=== PATIENT | female | born 2000 | race Caucasian/White ===

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

== ENCOUNTER 2019-01-27 17:35 | Emergency (ER) | payer SELFPAY ==
--- NOTE | 2019-01-27 17:39 | UC ---
Throat Pain/Nasal Davin HPI - HPI Summary HPI Summary: Sore throat since last evening. - History of Current Complaint Stated Complaint: ST Time Seen by Provider: 01/27/19 17:38 Hx Obtained From: Patient Hx Last Menstrual Period: 07/30/18 ?: No Onset/Duration: Gradual Onset Severity: Mild Cough: None Associated Signs & Symptoms: Positive: Negative - Allergies/Home Medications Allergies/Adverse Reactions: Allergies Allergy/AdvReac Type Severity Reaction Status Date / Time prochlorperazine Allergy Dizziness Verified 01/27/19 17:50 [From Compazine] and pt felt faint PMH/Surg Hx/FS Hx/Imm Hx Previously Healthy: Yes Respiratory History: Asthma Other History Of: Negative For: HIV, Hepatitis B, Hepatitis C, Anticoagulant Therapy - Surgical History Surgical History: Yes Surgery Procedure, Year, and Place: b/l ear tubes,mouth - Family History Known Family History: Positive: Renal Disease - "Links disease" Father and Uncle with kidney transplants, Respiratory Disease Negative: Cardiac Disease, Hypertension - Social History Alcohol Use: Rare Substance Use Type: None Smoking Status (MU): Former Smoker Type: Cigarettes Amount Used/How Often: 07/12 PPD Length of Time of Smoking/Using Tobacco: Since Age 15 When Did the Patient Quit Smoking/Using Tobacco: 05/2018 Household Exposure Type: Cigarettes - Immunization History Most Recent Influenza Vaccination: Not the Season Vaccination Up to Date: Yes Review of Systems All Other Systems Reviewed And Are Negative: Yes ENT: Positive: Sore Throat Is Patient Immunocompromised?: No Physical Exam Triage Information Reviewed: Yes Appearance: Well-Appearing, No Pain Distress, Well-Nourished Vital Signs Reviewed: Yes Eyes: Positive: Conjunctiva Clear ENT: Positive: Hearing grossly normal, Pharyngeal erythema - Minimal pharyngeal erythema, TMs normal, Uvula midline. Negative: Tonsillar swelling, Tonsillar exudate, Trismus, Muffled voice, Hoarse voice Neck: Positive: Supple, Nontender, No Lymphadenopathy Respiratory: Positive: Lungs clear, Normal breath sounds, No respiratory distress, No accessory muscle use Cardiovascular: Positive: RRR, No Murmur, Pulses Normal, Brisk Capillary Refill Abdomen Description: Positive: Nontender, No Organomegaly, Soft. Negative: CVA Tenderness (R), CVA Tenderness (L) Bowel Sounds: Positive: Present Musculoskeletal Exam: Normal Neurological Exam: Normal Psychological Exam: Normal Skin Exam: Normal Throat Pain/Nasal Course/Dx - Course Course Of Treatment: Rapid strep positive - Differential Dx/Diagnosis Provider Diagnosis: Strep pharyngitis Discharge - Sign-Out/Discharge Documenting (check all that apply): Patient Departure All imaging exams completed and their final reports reviewed: No Studies - Discharge Plan Condition: Fair Disposition: HOME Prescriptions: Amoxicillin PO (*) [Amoxicillin 875 MG (*)] 875 mg PO BID 10 Days #19 tab Patient Education Materials: Strep Throat (DC) Forms: *Work Release Referrals: Deepa Garnica NP [Nurse Practitioner] - Additional Instructions: Change your toothbrush in 24 hours, warm salt water gargles, throat lozenges, Tylenol/motrin as directed for a fever or pain. Follow up with your primary care provider in 3-4 days if no improvement. - Billing Disposition and Condition Condition: FAIR Disposition: Home - Attestation Statements Provider Attestation: I was available for consult. This patient was seen by the MICHELLE. The patient was not presented to , seen by or examined by ga -Elpidio Ye MD
[2019-01-27 17:57] VITALS: BP 111/64
[2019-01-27] MEDS ORDERED: Amoxicillin PO (*) 500 MG CAP PO ONE (18:09)
== END 2019-01-27 18:24 | disposition home or self-care (01) ==
LOC: UCCORT 17:35
DX: J02.0 Streptococcal pharyngitis (principal); Z87.891 Personal history of nicotine dependence
CPT/HCPCS: 87651; 99212; A9270-GY; G0463

== ENCOUNTER 2019-03-01 13:42 | Emergency (ER) | payer BC ==
[2019-03-01 14:19] VITALS: BP 110/74
--- NOTE | 2019-03-01 14:31 | UC ---
Throat Pain/Nasal Davin HPI - HPI Summary HPI Summary: 18-year-old female presents with complaints of 3 day history of fatigue, general malaise, nasal congestion, sinus pressure, and bilateral ear fullness. Also reports that she has had some intermittent vertigo with position changes. Reports fever of 100 2.3 F last night. Denies sore throat, dysphagia, cough, chest pain, shortness of breath, abdominal pain, nausea, or vomiting. - History of Current Complaint Chief Complaint: UCRespiratory Stated Complaint: SINUS,EAR PAIN Time Seen by Provider: 03/01/19 14:05 Hx Obtained From: Patient Hx Last Menstrual Period: DOES NOT HAVE REG PERIODS USES CONT BCP Pain Intensity: 9 - Allergies/Home Medications Allergies/Adverse Reactions: Allergies Allergy/AdvReac Type Severity Reaction Status Date / Time prochlorperazine Allergy Dizziness Verified 03/01/19 14:05 [From Compazine] and pt felt faint Home Medications: Home Medications Acetaminophen TAB* [Tylenol TAB*] 650 mg PO Q4H PRN 03/01/19 [History Confirmed 03/01/19] PMH/Surg Hx/FS Hx/Imm Hx Previously Healthy: Yes - Denies significant PMH Other History Of: Negative For: HIV, Hepatitis B, Hepatitis C, Anticoagulant Therapy - Surgical History Surgical History: Yes Surgery Procedure, Year, and Place: b/l ear tubes,mouth - Family History Known Family History: Positive: Renal Disease - "Links disease" Father and Uncle with kidney transplants, Respiratory Disease Negative: Cardiac Disease, Hypertension - Social History Occupation: Employed Full-time Lives: Alone Alcohol Use: Rare Substance Use Type: None Smoking Status (MU): Former Smoker Type: eCigarettkoko Amount Used/How Often: /10 PPD Length of Time of Smoking/Using Tobacco: Since Age 15 When Did the Patient Quit Smoking/Using Tobacco: 05/2018 Household Exposure Type: Cigarettes - Immunization History Most Recent Influenza Vaccination: Not the 2017/2017 Season Vaccination Up to Date: Yes Review of Systems All Other Systems Reviewed And Are Negative: Yes Constitutional: Positive: Fever, Fatigue Skin: Negative: Rash Eyes: Negative: Drainage, Eye Redness ENT: Positive: Ear Ache, Nasal Discharge, Sinus Congestion, Sinus Pain/ Tenderness. Negative: Sore Throat Respiratory: Negative: Shortness Of Breath, Cough Cardiovascular: Negative: Chest Pain Gastrointestinal: Negative: Abdominal Pain, Vomiting, Diarrhea, Nausea Genitourinary: Positive: Negative Musculoskeletal: Positive: Negative Neurological: Positive: Negative Is Patient Immunocompromised?: No Physical Exam - Summary Physical Exam Summary: GENERAL APPEARANCE: Well developed, well nourished, alert and cooperative, and appears to be in no acute distress. EYES: Conjunctiva clear. No drainage. EARS: External auditory canals and tympanic membranes clear, hearing grossly intact. NOSE: Moderate nasal congestion with mucosal erythema and edema. No nasal discharge. Tenderness over the frontal and maxillary sinuses with percussion. THROAT: Pharynx normal. No tonsilar inflammation, swelling, exudate, or lesions. Uvula midline. NECK: Neck supple, non-tender without lymphadenopathy. CARDIAC: Normal S1 and S2. No S3, S4 or murmurs. Rhythm is regular. There is no peripheral edema, cyanosis or pallor. Extremities are warm and well perfused. Capillary refill is less than 2 seconds. Peripheral pulses intact. LUNGS: Clear to auscultation without rales, rhonchi, wheezing or diminished breath sounds. ABDOMEN: Positive bowel sounds. Soft, nondistended, nontender. No guarding or rebound. No masses or hepatosplenomegally. MUSKULOSKELETAL: ROM intact to all extremities. No joint erythema or tenderness. Normal muscular development. Normal gait. SKIN: Skin normal color, texture and turgor with no lesions or eruptions. Triage Information Reviewed: Yes Vital Signs: Initial Vital Signs Temp 97.6 F 03/01/19 14:07 Pulse 83 03/01/19 14:07 Resp 17 03/01/19 14:07 BP 110/74 03/01/19 14:07 Pulse Ox 100 03/01/19 14:07 Vital Signs Reviewed: Yes Throat Pain/Nasal Course/Dx - Course Course Of Treatment: 18-year-old female presents with complaints of 3 day history of fatigue, general malaise, nasal congestion, sinus pressure, and bilateral ear fullness. Also reports that she has had some intermittent vertigo with position changes. Reports fever of 100 2.3 F last night. Denies sore throat, dysphagia, cough, chest pain, shortness of breath, abdominal pain, nausea, or vomiting. Afebrile. Vital signs stable. Patient had moderate nasal congestion with mucosal erythema and edema. No nasal discharge. Tenderness over the frontal and maxillary sinuses with percussion. The remainder of exam was unremarkable. Recommending symptomatic treatment for a viral sinusitis including fluticasone nasal spray, nasal rinses, and [id number] decongestant. Patient is to return here or with her primary care provider in 5 days if symptoms are not improving. Anticipatory guidance and warning signs reviewed with the patient. Verbalized understanding and agrees with plan of care. - Differential Dx/Diagnosis Differential Diagnosis/HQI/PQRI: Mononucleosis, Otitis Media, Pharyngitis, Sinusitis, Tonsillitis, URI Provider Diagnosis: Acute sinusitis Discharge ED - Sign-Out/Discharge Documenting (check all that apply): Patient Departure All imaging exams completed and their final reports reviewed: No Studies - Discharge Plan Condition: Stable Disposition: HOME Prescriptions: Fluticasone NASAL SPRAY 50MCG* [Flonase NASAL SPRAY 50MCG*] 2 spray BOTH NARES DAILY #1 btl Patient Education Materials: Sinusitis (ED) Forms: *Work Release Referrals: No Primary Care Phys,NOPCP [Primary Care Provider] - Additional Instructions: Your history and exam are consistent with a sinus infection. Sinus infections without fever are most often caused by a viral infection. Viral infections do not respond to antibiotics and are limited to the treatment of symptoms. Viral infections typically run their course in 7-10 days. Drink plenty of fluids to avoid dehydration especially if you are running any fever. Use a saline rinse kit such as Neti Pot or NeilMed at least twice a day to help thin secretions and promote drainage of the sinuses. Use fluticasone (Flonase) nasal spray 2 sprays each nostril once daily. Use an over the counter decongestant such as Sudafed according to directions to help with congestion. Take over the counter acetaminophen (Tylenol) or ibuprofen (Advil, Motrin) according to directions as needed for pain or fever. Return here or follow up with your primary care provider in 5 days if symptoms persist. Seek immediate medical attention in the emergency room if you have fever greater than 100.5 F despite taking acetaminophen or ibuprofen, have chest pain , difficulty breathing, are unable to swallow, or have any worsening of symptoms. - Billing Disposition and Condition Condition: STABLE Disposition: Home - Attestation Statements Provider Attestation: I was available for consult. This patient was seen by the MICHELLE. The patient was not presented to, seen by, or examined by me. -Yuliana
== END 2019-03-01 14:50 | disposition home or self-care (01) ==
LOC: UCCORT 13:42
DX: J01.90 Acute sinusitis, unspecified (principal); Z87.891 Personal history of nicotine dependence
CPT/HCPCS: 99212; G0463

== ENCOUNTER 2019-04-12 07:21 | Emergency (ER) | payer BC, OTHER ==
[2019-04-12 07:50] VITALS: BP 105/64
--- NOTE | 2019-04-12 08:40 | UC ---
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 Was working with another aide, working together to scooch a heavy male patient up in bed. Has pain radiating to the right posterior leg, but no paresthesias and no leg weakness. Coughing and sneezing does not worsen pain. - History of Current Complaint Chief Complaint: UCBackPain Stated Complaint: WC-BACK INJURY Time Seen by Provider: 04/12/19 08:24 Hx Obtained From: Patient, Family/Assistant Branch Operations Manager - here with her mother Hx Last Menstrual Period: BCP Onset/Duration: Sudden Onset, Lasting Days - 3 Timing: Constant Severity Initially: Moderate Severity Currently: Moderate Pain Intensity: 8 Back Pain: Is Discrete @ - upper lumbar area. Character: Aching, Throbbing Aggravating Factor(s): Movement, Lifting, Bending Alleviating Factor(s): Rest, Position - best lying on her stomach. Associated Signs And Symptoms: Positive: Negative. Negative: Bladder Incontinence, Bowel Incontinence - Risk Factors AAA Risk Factors: Negative TAD Risk Factors: Negative Cauda Equina Risk Factors: Negative Epidural Abscess Risk Factors: Negative - Allergies/Home Medications Allergies/Adverse Reactions: Allergies Allergy/AdvReac Type Severity Reaction Status Date / Time prochlorperazine Allergy Dizziness Verified 04/12/19 07:50 [From Compazine] and pt felt faint Home Medications: Home Medications Ibuprofen 600 mg PO Q6HR PRN 04/12/19 [History Confirmed 04/12/19] PMH/Surg Hx/FS Hx/Imm Hx Previously Healthy: Yes - overweight. Other History Of: Negative For: HIV, Hepatitis B, Hepatitis C, Anticoagulant Therapy - Surgical History Surgical History: Yes Surgery Procedure, Year, and Place: b/l ear tubes,mouth - Family History Known Family History: Positive: Renal Disease - "Links disease" Father and Uncle with kidney transplants, Respiratory Disease, Non-Contributory Negative: Cardiac Disease, Hypertension - Social History Occupation: Employed Full-time Alcohol Use: Rare Substance Use Type: None Smoking Status (MU): Former Smoker Type: eCigarettes Amount Used/How Often: 07/12 PPD Length of Time of Smoking/Using Tobacco: Since Age 15 When Did the Patient Quit Smoking/Using Tobacco: 05/2018 Household Exposure Type: Cigarettes - Immunization History Most Recent Influenza Vaccination: Not the Season Vaccination Up to Date: Yes Review of Systems All Other Systems Reviewed And Are Negative: Yes Constitutional: Positive: Negative Skin: Positive: Negative Eyes: Positive: Negative ENT: Positive: Negative Respiratory: Positive: Negative Cardiovascular: Positive: Negative Gastrointestinal: Positive: Negative Genitourinary: Positive: Negative Motor: Positive: Decreased ROM Musculoskeletal: Positive: Decreased ROM, Myalgia Neurological: Positive: Negative Psychological: Positive: Negative Is Patient Immunocompromised?: No Physical Exam Triage Information Reviewed: Yes Appearance: Well-Appearing, Pain Distress - mild to moderate, Obese Vital Signs: Initial Vital Signs Temp 97.6 F 04/12/19 07:46 Pulse 78 04/12/19 07:46 Resp 16 04/12/19 07:46 BP 105/64 04/12/19 07:46 Pulse Ox 100 04/12/19 07:46 Eye Exam: Normal ENT: Positive: Normal ENT inspection Neck: Positive: Supple, Nontender, No Lymphadenopathy Respiratory: Positive: Lungs clear, Normal breath sounds Cardiovascular: Positive: RRR, No Murmur Abdomen Description: Positive: Nontender, No Organomegaly Musculoskeletal Exam: Other - Antalgic gait, pain with rising from chair; Tenderness L2-3-4 with paraspinal muscle spasm throughout. DTR's normal and toes downgoing. Positive SLR at 30 degrees on the right, no crossed straight leg raising. . Neurological Exam: Normal Neurological: Positive: Alert, Muscle Tone Normal Psychological Exam: Normal Skin Exam: Normal Back Pain Course/Dx - Course Course Of Treatment: Discussed use of steroids, which she had at age 11 and did not tolerate due to severe insomnia. Discussed risks and possible benefits and she will trial the medication. Referred to Dr. Ye for evaluation. NSAID's and flexeril given. - Differential Dx/Diagnosis Differential Diagnosis/HQI/PQRI: Herniated Disc, Strain, Sprain Provider Diagnosis: Low back strain Discharge ED - Sign-Out/Discharge Documenting (check all that apply): Patient Departure All imaging exams completed and their final reports reviewed: No Studies - Discharge Plan Condition: Stable Disposition: HOME Prescriptions: Cyclobenzaprine TAB* [Flexeril 10 MG TAB*] 10 mg PO BID PRN #30 tab PRN Reason: Spasms - Back methylPREDNISolone [Medrol] 4 mg PO .SEE VIVIAN INSTRUCTION #1 tab.ds.pk Naproxen [Naproxen 500 mg tab] 500 mg PO BID #30 tablet Patient Education Materials: Acute Low Back Pain (ED) Forms: *Work Release Referrals: No Primary Care Phys,NOPCP [Primary Care Provider] - Elpidio Ye MD [Medical Doctor] - Additional Instructions: Please call Dr. Ye to arrange a follow up visit to assess back injury. STOP use of ibuprofen and use naproxen 500mg twice daily for pain and inflammation. If the medrol dosepack causes insomnia or irritability, you can stop use of it. Off work through 04/16/19. - Billing Disposition and Condition Condition: STABLE Disposition: Home
== END 2019-04-12 08:57 | disposition home or self-care (01) ==
LOC: UCCORT 07:21
DX: S39.012A Strain of muscle, fascia and tendon of lower back, initial encounter (principal); Z88.8 Allergy status to other drugs, medicaments and biological substances; Z87.891 Personal history of nicotine dependence; X50.0XXA Overexertion from strenuous movement or load, initial encounter; Y93.89 Activity, other specified; Y92.9 Unspecified place or not applicable
CPT/HCPCS: 99212; G0463

== ENCOUNTER 2019-05-27 16:32 | Emergency (ER) | payer BC, OTHER ==
[2019-05-27 17:00] VITALS: BP 108/71
--- NOTE | 2019-05-27 17:39 | ED ---
Throat Pain/Nasal Congestion - HPI Summary HPI Summary: 19-year-old white female presents with bilateral ear pain that started with URI symptoms about 1.5 weeks ago. Pain is worsened. Denies fever or chills nausea , vomiting or worsening cough with sputum - History of Current Complaint Chief Complaint: UCGeneralIllness Time Seen by Provider: 05/27/19 17:31 Hx Obtained From: Patient Onset/Duration: Sudden Onset Associated Signs And Symptoms: Positive: Negative - Epiglottits Risk Factors Epiglottis Risk Factors: Negative - Allergies/Home Medications Allergies/Adverse Reactions: Allergies Allergy/AdvReac Type Severity Reaction Status Date / Time prochlorperazine Allergy Dizziness Verified 05/27/19 16:53 [From Compazine] and pt felt faint PMH/Surg Hx/FS Hx/Imm Hx Previously Healthy: Yes Endocrine/Hematology History: Denies: Hx Anticoagulant Therapy, Hx Diabetes, Hx Thyroid Disease Cardiovascular History: Denies: Hx Congestive Heart Failure, Hx Deep Vein Thrombosis, Hx Hypertension , Hx Myocardial Infarction, Hx Pacemaker/ICD Respiratory History: Reports: Hx Asthma Denies: Hx Chronic Obstructive Pulmonary Disease (COPD), Hx Lung Cancer, Hx Pneumonia, Hx Pulmonary Embolism GI History: Denies: Hx Gall Bladder Disease, Hx Gastrointestinal Bleed, Hx Ulcer, Hx Urosepsis History: Denies: Hx Kidney Stones, Hx Renal Disease Neurological History: Denies: Hx Dementia, Hx Migraine, Hx Seizures, Hx Transient Ischemic Attacks (TIA) Psychiatric History: Denies: Hx Anxiety, Hx Depression, Hx Schizophrenia, Hx Bipolar Disorder - Surgical History Surgery Procedure, Year, and Place: b/l ear tubes. mouth Infectious Disease History: No Infectious Disease History: Denies: Traveled Outside the [place] in Last 30 Days - Family History Known Family History: Positive: Renal Disease - "Links disease" Father and Uncle with kidney transplants, Respiratory Disease, Non-Contributory Negative: Cardiac Disease, Hypertension - Social History Alcohol Use: Rare Substance Use Type: Reports: None Smoking Status (MU): Former Smoker Type: eCigarettes Amount Used/How Often: 1/10 PPD Length of Time of Smoking/Using Tobacco: Since Age 15 Review of Systems Constitutional: Negative Eyes: Negative Positive: Sore Throat, Ear Ache. Negative: Nasal Discharge Cardiovascular: Negative Respiratory: Negative Negative: Shortness Of Breath, Cough Gastrointestinal: Negative Genitourinary: Negative Musculoskeletal: Negative Skin: Negative Neurological: Negative All Other Systems Reviewed And Are Negative: Yes Physical Exam - Summary Physical Exam Summary: Appearance: Positive: No Pain Distress Skin: Positive: Warm Head/Face: Positive: Normal Head/Face Inspection Eyes: :Normal ENT: mild B/L TM erythema w/o effusion, bilateral posterior auricular tenderness Neck: Positive: Supple Respiratory/Lung Sounds: Positive: Clear to Auscultation. Cardiovascular: Positive: Normal, RRR, S1, S2 Abdomen : soft, NT/ND Musculoskeletal: Positive: Normal, Strength/ROM Intact Neurological: Positive: CN 2-12 grossly intact Triage Information Reviewed: Yes Vital Signs On Initial Exam: Initial Vitals Temp Pulse Resp BP Pulse Ox 36.4 C 93 16 108/71 98 05/27/19 16:54 05/27/19 16:54 05/27/19 16:54 05/27/19 16:54 05/27/19 16:54 Vital Signs Reviewed: Yes Diagnostics - Vital Signs Vital Signs Temp Pulse Resp BP Pulse Ox 05/27/19 16:54 36.4 C 93 16 108/71 98 - Laboratory Lab Statement: Any lab studies that have been ordered have been reviewed, and results considered in the medical decision making process. EENT Course/Dx - Diagnoses Provider Diagnoses: Otitis media Discharge ED - Sign-Out/Discharge Documenting (check all that apply): Patient Departure All imaging exams completed and their final reports reviewed: No Studies - Discharge Plan Condition: Stable Disposition: HOME Prescriptions: Amoxicillin/Clavulanate TAB* [Augmentin TAB 875*] 875 mg PO BID 7 Days #14 tab Patient Education Materials: Ear Infection (ED) Forms: *Work Release Additional Instructions: If pain continues in spite of antibiotics in a few days please follow-up with ENT doctor. - Billing Disposition and Condition Condition: STABLE Disposition: Home
== END 2019-05-27 17:47 | disposition home or self-care (01) ==
LOC: UCCORT 16:32
DX: H66.93 Otitis media, unspecified, bilateral (principal); J02.9 Acute pharyngitis, unspecified; J45.909 Unspecified asthma, uncomplicated; Z87.891 Personal history of nicotine dependence; Z88.8 Allergy status to other drugs, medicaments and biological substances
CPT/HCPCS: 99212; G0463

== ENCOUNTER 2019-06-21 19:08 | Emergency (ER) | payer BC ==
[2019-06-21 21:10] VITALS: BP 104/54
--- NOTE | 2019-06-21 21:45 | UC ---
General HPI - HPI Summary HPI Summary: Patient is a 19yo female presenting with boyfriend for "dizziness when standing up from sitting, when turning, head, and when eating" x3 days. She states "the whole room spins." Episodes last ~10 seconds. Denies vision changes otherwise. Patient also notes that she has b/l earaches. Notes she was treated with augmentin for b/l ear infections on 05/27 and states that symptoms resolved only for 1-2 days and then returned. Notes chronic "ear problems" and intermittent tinnitus. Denies hearing loss. She also notes "constant "pressure in the back on her lower head" x3 days. Denies aggravating and alleviating factors. Denies contact use or glasses. Denies syncope. Denies n/v. Denies arm/ leg weakness. Denies anything like this in the past. Patient adds she is "very stressed." Also states she is unsure whether or not she could be , stating "there is always a chance." - History of Current Complaint Chief Complaint: UCHeadagiovana Stated Complaint: HEADACHE, DIZZINESS Hx Obtained From: Patient Hx Last Menstrual Period: no menses d/t bcp Onset/Duration: Sudden Onset Pain Intensity: 9 - Allergy/Home Medications Allergies/Adverse Reactions: Allergies Allergy/AdvReac Type Severity Reaction Status Date / Time prochlorperazine Allergy Dizziness Verified 06/21/19 19:29 [From Compazine] and pt felt faint PMH/Surg Hx/FS Hx/Imm Hx Other History Of: Negative For: HIV, Hepatitis B, Hepatitis C, Anticoagulant Therapy - Surgical History Surgical History: Yes Surgery Procedure, Year, and Place: b/l ear tubes. mouth - Family History Known Family History: Positive: Renal Disease - "Links disease" Father and Uncle with kidney transplants, Respiratory Disease, Non-Contributory Negative: Cardiac Disease, Hypertension - Social History Alcohol Use: Rare Substance Use Type: None Smoking Status (MU): Former Smoker Type: eCigarettes Amount Used/How Often: 07/12 PPD Length of Time of Smoking/Using Tobacco: Since Age 15 When Did the Patient Quit Smoking/Using Tobacco: 05/2018 Household Exposure Type: Cigarettes - Immunization History Most Recent Influenza Vaccination: Not the Season Vaccination Up to Date: Yes Review of Systems All Other Systems Reviewed And Are Negative: Yes Constitutional: Positive: Negative. Negative: Fever, Chills, Fatigue Eyes: Negative: Blurred Vision, Diplopia ENT: Positive: Ear Ache - b/l, Other - intermittent tinnitus. Negative: Sore Throat, Sinus Congestion Respiratory: Positive: Negative Cardiovascular: Positive: Negative Gastrointestinal: Positive: Negative. Negative: Vomiting, Nausea Motor: Positive: Negative Musculoskeletal: Positive: Negative Neurological: Positive: Headache - "lower back of head", Other - dizziness when standing up and eating, "room spinning". Negative: Weakness, Paresthesia, Numbness Physical Exam Triage Information Reviewed: Yes Appearance: Well-Appearing, No Pain Distress, Well-Nourished Vital Signs: Initial Vital Signs Temp 96.9 F 06/21/19 19:30 Pulse 80 06/21/19 19:30 Resp 16 06/21/19 19:30 BP 108/68 06/21/19 19:30 Pulse Ox 100 06/21/19 19:30 Lab Results 06/21/19 06/21/19 Range/Units 21:26 21:27 POC Urine Color Other POC Urine Clarity Clear POC Urine pH 6.5 (5-9) POC Ur Specif Valier 1.025 (1.010-1.030) POC Urine Protein Trace (Negative) POC Ur Glucose (UA) Negative (Negative) POC Urine Ketones Negative (Negative) POC Urine Blood Negative (Negative) POC Urine Nitrite Negative (Negative) POC Urine Bilirubin Negative (Negative) POC Urine Urobilinogen 0.2 (Negative) POC U Leukocyte Esteras Negative (Negative) POC Ur Test Negative (Negative) Vital Signs Reviewed: Yes Eye Exam: Other - PERRLA. EOM intact. no horizontal or vertical nystagmus Eyes: Positive: Conjunctiva Clear ENT Exam: Normal ENT: Positive: Normal ENT inspection, Hearing grossly normal, Pharynx normal, TMs normal - b/l TMs intact with nl light reflexes and landmarks. Negative: Nasal congestion Neck exam: Normal Neck: Positive: Supple, Nontender, No Lymphadenopathy. Negative: Nuchal Rigidity Respiratory Exam: Normal Respiratory: Positive: Lungs clear, Normal breath sounds, No respiratory distress Cardiovascular Exam: Normal Cardiovascular: Positive: RRR, No Murmur Neurological Exam: Other - CN II-XII intact. negative romberg. negative finger to nose. negative heel to wilder. normal gait observed. Neurological: Positive: Alert, Muscle Tone Normal Psychological: Positive: Age Appropriate Behavior Skin Exam: Normal - no erythema or ecchymosis Course/Dx - Course Course Of Treatment: Patient neuro exam and orthostatics WNL. Instructed patient to take meclizine for vertigo and maintain hydration. Instructed patient to follow up with physician referral if symptoms persist and to go to ED with any new or worsening symptoms. Patient voiced understanding and agreed with treatment plan. - Diagnoses Provider Diagnosis: BPPV (benign paroxysmal positional vertigo) Discharge ED - Sign-Out/Discharge Documenting (check all that apply): Patient Departure All imaging exams completed and their final reports reviewed: No Studies - Discharge Plan Condition: Stable Disposition: HOME Prescriptions: Meclizine HCl [Motion Sickness Relief] 25 mg PO TID PRN #60 tablet PRN Reason: Vertigo Patient Education Materials: Vertigo (ED) Forms: *Work Release Referrals: [facility] [place] [facility] [Outside] - If Needed Additional Instructions: As discussed, take meclizine as directed for vertigo. Make sure you are staying hydrated. Follow up with the Physician Referral if your symptoms persist. Go to the emergency room with any new or worsening symptoms. - Billing Disposition and Condition Condition: STABLE Disposition: Home
== END 2019-06-21 21:50 | disposition home or self-care (01) ==
LOC: UCCORT 19:08
DX: H81.13 Benign paroxysmal vertigo, bilateral (principal); R51 Headache; Z88.8 Allergy status to other drugs, medicaments and biological substances; Z87.891 Personal history of nicotine dependence
CPT/HCPCS: 81003; 84702; 99212; G0463

== ENCOUNTER 2019-09-30 23:45 | Emergency (ER) | payer BC, OTHER ==
--- NOTE | 2019-09-30 23:54 | ED ---
HPI Febrile Illness - HPI Summary HPI Summary: 19 year old F presenting to [facility] with a chief complaint of a fever of 100.6 degrees since earlier today. Patient reports a mild cough for the last couple of days. She was at work when her fever was noted and she was sent home, then came to the emergency department for further evaluation. Patient denies any shortness of breath, apparent COVID-19 contacts, or recent travel history. She has a history of intermittent asthma which is not bothering her now. She denies an active history of smoking. - History of Current Complaint Time Seen by Provider: 09/30/19 23:50 Hx Obtained From: Patient Hx Last Menstrual Period: no menses d/t bcp Onset/Duration: Started Hours Ago Timing: Constant Temperature: 38.1 C Associated Signs and Symptoms: Negative - Shortness of breath, Cough - Allergy/Home Medications Allergies/Adverse Reactions: Allergies Allergy/AdvReac Type Severity Reaction Status Date / Time prochlorperazine Allergy Dizziness Verified 06/21/19 19:29 [From Compazine] and pt felt faint Home Medications: Home Medications Norethindr/Eth Estradiol(Nf) [Lo Loestrin Fe (NF)] 1 tab PO BEDTIME 08/12/18 [ History Confirmed 06/21/19] Meclizine HCl [Motion Sickness Relief] 25 mg PO TID PRN #60 tablet 06/21/19 [Rx] PMH/Surg Hx/FS Hx/Imm Hx Endocrine/Hematology History: Denies: Hx Anticoagulant Therapy, Hx Diabetes, Hx Thyroid Disease Cardiovascular History: Denies: Hx Congestive Heart Failure, Hx Deep Vein Thrombosis, Hx Hypertension , Hx Myocardial Infarction, Hx Pacemaker/ICD Respiratory History: Reports: Hx Asthma Denies: Hx Chronic Obstructive Pulmonary Disease (COPD), Hx Lung Cancer, Hx Pneumonia, Hx Pulmonary Embolism GI History: Denies: Hx Gall Bladder Disease, Hx Gastrointestinal Bleed, Hx Ulcer, Hx Urosepsis History: Denies: Hx Kidney Stones, Hx Renal Disease Neurological History: Denies: Hx Dementia, Hx Migraine, Hx Seizures, Hx Transient Ischemic Attacks (TIA) Psychiatric History: Denies: Hx Anxiety, Hx Depression, Hx Schizophrenia, Hx Bipolar Disorder - Surgical History Surgery Procedure, Year, and Place: b/l ear tubes. mouth - Family History Known Family History: Positive: Renal Disease - "Links disease" Father and Uncle with kidney transplants, Respiratory Disease Negative: Cardiac Disease, Hypertension - Social History Alcohol Use: Rare Substance Use Type: Reports: None Smoking Status (MU): Former Smoker Type: eCigarettes Amount Used/How Often: 1/10 PPD Length of Time of Smoking/Using Tobacco: Since Age 15 Review of Systems Positive: Fever Positive: Cough. Negative: Shortness Of Breath All Other Systems Reviewed And Are Negative: Yes Physical Exam - Summary Physical Exam Summary: Appearance: Well-appearing, Well-nourished, lying in bed comfortably Skin: Warm, dry, no obvious rash Eyes: sclera anicteric, no conjunctival pallor HENT: mucous membranes moist, pharynx appears normal Neck: Supple, nontender Respiratory: Clear to auscultation, no signs of respiratory distress Cardiovascular: Normal S1, S2. No murmurs. Normal distal pulses in tibial and radial bilaterally. Abdomen: Soft, nontender, normal active bowel sounds present Musculoskeletal: Normal, Strength/ROM Intact Neurological: A&Ox3, awake and alert, mentation is normal, speech is fluent and appropriate Psychiatric: affect is normal, does not appear anxious or depressed Triage Information Reviewed: Yes Vital Signs Reviewed: Yes Procedures - Sedation Patient Received Moderate/Deep Sedation with Procedure: No Course/Dx - Course Course Of Treatment: 19 year old F presenting to [facility] with a chief complaint of a fever of 100.6 degrees since earlier today. Patient reports a mild cough for the last couple of days. In the ED course, the patient was tested for COVID- 19. Patient will be discharged. The patient is agreeable with this plan. - Diagnoses Provider Diagnoses: Fever Discharge ED - Sign-Out/Discharge Documenting (check all that apply): Patient Departure - Discharge Plan Condition: Good Disposition: HOME Patient Education Materials: Fever in Adults (ED), Upper Respiratory Infection (ED) Forms: COVID-19 Tested & Isolation - Billing Disposition and Condition Condition: GOOD Disposition: Home - Attestation Statements Document Initiated by Vinayakibe: Yes Documenting Scribe: Macarena Arthur Provider For Whom Vinayakibsusan is Documenting (Include Credential): Kevin Carrero MD Scribe Attestation: Macarena Allen scribed for Kevin Carrero MD on 10/04/19 at 1840. Scribe Documentation Reviewed: Yes Provider Attestation: The documentation as recorded by the scribe, Macarena Muddy accurately reflects the service I personally performed and the decisions made by me, Kevin Carrero MD Status of Vinayakibsusan Document: Viewed
[2019-10-01 00:20] VITALS: BP 137/78
== END 2019-10-01 00:19 | disposition home or self-care (01) ==
LOC: ED 23:45
DX: R50.9 Fever, unspecified (principal); Z87.891 Personal history of nicotine dependence; R05 Cough; Z20.828 Contact with and (suspected) exposure to other viral communicable diseases
CPT/HCPCS: 87635; 99282

== ENCOUNTER 2024-05-27 08:07 | Inpatient (IN) ==
[2024-05-27] MEDS ORDERED: Nalbuphine 10 MG/ML 1 ML VIAL IV PRN (09:29)
[2024-05-27] MEDS ORDERED: Lidocaine 1% VIAL 10 MG/ML 30 ML VIAL INJ PRN (09:29)
[2024-05-27] MEDS ORDERED: Prochlorperazine 5 mg/ml 2 ml VIAL (10 mg) IV PRN (09:29)
[2024-05-27] MEDS: Dinoprostone 10 MG VAG.SUPP VAGINAL ONE (10:18)
[2024-05-27 13:15] LABS: Urine Benzodiazepine Screen None Detected (None Detect); Urine Cannabinoids Screen None Detected (None Detect); Urine Opiates Screen None Detected (None Detect)
[2024-05-27] MEDS ORDERED: Ondansetron 4 mg VIAL 2 MG/ML 2 ml VIAL IV PRN (18:47)
[2024-05-27] MEDS: Ondansetron ODT 4 mg TAB 4 MG TAB PO PRN (19:03)
[2024-05-28 01:30] LABS: Hematocrit 32.7 % (35-45); Hemoglobin 10.6 g/dL (11.5-14.3); Mean Corpuscular Hemoglobin 21.7 pg (27-33); Mean Corpuscular Hgb Conc 32.4 g/dL (31-36); Mean Platelet Volume 7.8 fL (7.5-11.2); Platelet Count 300 10^3/uL (150-450); Red Blood Count 4.88 10^6/uL (3.63-4.92); Red Cell Distribution Width 15.8 % (12-17); White Blood Count 10.8 10^3/uL (3.8-11.8)
[2024-05-28 02:08] LABS: ABS Eosinophils 0.1 10^3/uL (0.0-0.5); ABS Lymphocytes 1.3 10^3/uL (1.0-4.8); ABS Monocytes 0.7 10^3/uL (0.0-0.9); ABS Neutrophils 8.7 10^3/uL (1.5-7.6); ABS Nucleated RBC 0.01 10^3/ul; Anisocytosis 1+; Eosinophil % 0.6 %; Lymphocyte % 12.2 %; Microcytosis 3+; Nucleated Red Blood Cells % 0.1 %/100WBC (0.0-0.8); Polychromasia 1+
[2024-05-28] MEDS ORDERED: Sodium Citrate/Citric Acid LIQ 15 ML UDC PO PRN (11:12)
[2024-05-28] MEDS ORDERED: Phenylephrine 40 mcg/mL 10mL (400mcg) SYRINGE IV PUSH PRN ×2 (11:12)
[2024-05-28] MEDS: Lactated Ringers 1000 ml BAG 1,000 ML IV SCH ×2 (11:34→20:32)
[2024-05-28] MEDS: OBEPIDURAL (200 ML) 200 ML EPIDURAL ONE (11:34)
[2024-05-28] MEDS: OBEPIDURAL (200 ML) 200 ML EPIDURAL SCH (14:00)
[2024-05-28 14:50] LABS: Urine Appearance Clear; Urine Bilirubin Negative (Negative); Urine Blood 3+ (Negative); Urine Color Light-Yellow; Urine Glucose Negative (Negative); Urine Ketones Negative (Negative); Urine Nitrite Negative (Negative); Urine Protein Negative (Negative); Urine Specific Gravity 1.008 (1.002-1.030); Urine Urobilinogen Negative (Negative)
[2024-05-28 15:09] LABS: Urine Bacteria Absent /HPF (Absent); Urine Red Blood Cell 3+(>10/hpf) /HPF (0-Trace); Urine White Blood Cell Trace(0-5/hpf) /HPF (0-Trace)
[2024-05-28] MEDS ORDERED: Glycerin ADULT 2.4 gm SUPP PR PRN (20:11)
[2024-05-28] MEDS: Oxytocin in LR 20,000 MILLI.UNIT/1,000 ML BAG IV SCH ×2 (20:32→21:31)
[2024-05-28] MEDS: Lactated Ringers 1000 ml BAG 1,000 ML IV ONE ×2 (20:32)
[2024-05-28] MEDS: Buffered Lidocaine 1% SYRIN 1 ml INTRADERM ONE (20:53)
[2024-05-28] MEDS: Phenylephrine 40 mcg/mL 10mL (400mcg) SYRINGE ONE (20:54)
[2024-05-28] MEDS: Lidocaine 1.5% EPI 1:200,000 30 ML SDV ONE ×3 (20:54→20:56)
[2024-05-28] MEDS: Lidocaine 2% w/ EPI 1:200,000 MPF 20 ML SDV VIAL ONE (20:56)
[2024-05-28] MEDS ORDERED: Lactated Ringers 1000 ml BAG 1,000 ML IV SCH (21:00)
[2024-05-28] MEDS: Dibucaine 1% OINT 28.35 GM TUBE PR PRN (22:07)
[2024-05-28] MEDS: Witch Hazel PAD JAR TOPICAL PRN (22:07)
[2024-05-29 07:22] LABS: ABS Lymphocytes 1.6 10^3/uL (1.0-4.8); Eosinophil % 0.3 %; Hematocrit 24.4 % (35-45); Lymphocyte % 11.2 %; Mean Corpuscular Hemoglobin 22.1 pg (27-33); Mean Corpuscular Volume 66.8 fL (80-97); Platelet Count 228 10^3/uL (150-450); Red Blood Count 3.64 10^6/uL (3.63-4.92); Red Cell Distribution Width 16.3 % (12-17); White Blood Count 14.7 10^3/uL (3.8-11.8)
[2024-05-29 10:10] LABS: Calcium 8.3 mg/dL (8.6-10.3); Creatinine, Serum 0.64 mg/dL (0.51-0.95); Potassium 4.2 mmol/L (3.5-5.0); eGFR CKD-EPI 125.7 (>60)
[2024-05-30 07:55] VITALS: BP 111/68
== END 2024-05-30 10:05 | disposition home or self-care (01) | DRG 542 ==
LOC: MCHOBOUT 08:07 → MCHOB 08:18
PROVIDERS: ADMIT Obstetrics & Gynecology; ATTEND Obstetrics & Gynecology